=== PATIENT | female | born 1950 | race African-American/Black ===

== ENCOUNTER 2017-01-15 08:31 | Day surgery (SDC) | payer MEDICARE, BC ==
[~2017-01-15] VITALS: Ht 165.1 cm; Wt 94.3 kg
[~2017-01-15 08:31] MED LIST: ALPRAZOLAM0.5 MG PO; AMOXICILLIN250 M1 PO; ATENOLOL25 MG PO; BENTYL10 MG PO; CARDURA2 MG PO; CARTIA XT240 MG/24 OR; CEFTIN500 MG PO; CIPRO XR500 MG PO; CIPROFLOXACN500 MG PO; CLONIDINE0.2 MG PO; CYCLOBENZAPR10 MG PO; DICYCLOMINE10 MG PO; DILTIAZEM240 MG PO; DORZOL/TIMOL1 ML OU; DORZOLAMIDE HCL/1 ML OU; ENALAPRIL MALEA20 MG PO; ENALAPRIL10 MG OR; FLAGYL ER750 MG PO; HYDRALAZINE25 MG OR; HYDRALAZINE25 MG PO; HYDRALAZINE50 MG PO; HYDROCO/APAP1 T12 PO; HYDROCODONE/ACE1 TAB PO; LIDODERM5 % EX; LIPITOR10 MG PO; LOPRESSOR 550 MG/TAB PO; LOTRISONE TOP; LUMIGAN0.01 % OP; MAXZIDE OR; MAXZIDE-2537.5 MG/TA PO; MECLIZINE25 MG OR; MEDDOSEPAK PO; MEDROL4 M1 PO; METOCLOPRAMIDE10 MG PO; METOPROL TAR100 MG PO; METOPROLOL TART50 MG PO; METOPROLOL50 MG OR; MOBIC7.5 MG PO; NEXIUM40 M1 PO; NEXIUM40 MG PO; NORVASC10 M1 PO; OMEPRAZOLE20 MG PO; PERCOCET 5/325M1 TAB OR; PREMARIN VAG0.625 MG VA; PRILOSEC20 MG/CAP PO; PROTONIX40 MG PO; RESTASIS0.05 % OU; SIMVASTATIN80 MG PO; SKELAXIN800 MG OR; TAM75CAP PO; TRIAM/HCTZ1 CAP PO; TRIAMT/HCTZ1 TAB PO; ULTRAM50 MG PO; XALATAN 0.005%2.5 ML; ZIOPTAN 0.0015% OU; ZOFRAN4 MG/TAB PO; ZYRTEC10 MG PO; catapres PO
[2017-01-15 10:55] VITALS: BP 193/78
== END 2017-01-15 11:20 | disposition home or self-care (01) ==
LOC: ENDO 08:31 → ORM 10:30 → ENDO 11:20 → ORM 11:30 → ENDO 11:30
PROVIDERS: ATTEND Internal Medicine Gastroenterology
PROC: 0DBP8ZX Excision of Rectum, Via Natural or Artificial Opening Endoscopic, Diagnostic (ICD-10-PCS; principal; 2017-01-15)
PROC: 0DBN8ZX Excision of Sigmoid Colon, Via Natural or Artificial Opening Endoscopic, Diagnostic (ICD-10-PCS; 2017-01-15)
DX: K57.30 Diverticulosis of large intestine without perforation or abscess without bleeding (principal); R14.0 Abdominal distension (gaseous); K63.5 Polyp of colon; K62.1 Rectal polyp; K64.4 Residual hemorrhoidal skin tags; K64.8 Other hemorrhoids; R11.0 Nausea; K21.9 Gastro-esophageal reflux disease without esophagitis; I10 Essential (primary) hypertension; E78.00 Pure hypercholesterolemia, unspecified; Z86.010 Personal history of colon polyps

== ENCOUNTER 2017-02-03 13:47 | Observation (INO) | payer MEDICARE, BC ==
[~2017-02-03] VITALS: Ht 165.1 cm; Wt 95.2 kg
[2017-02-03 14:47] LABS: HEMOGLOBIN 14.1 g/dl (12.0-16.0); IMMATURE GRANULOCYTES 0.3 % (0.0-1.0); MEAN CELL VOLUME 86.2 fL CALC (80.0-100.0); MEAN CORPUSCULAR HGB CONC 33.6 g/L CALC (32.0-36.0); NEUT# 3.79 thou/uL (2.00-7.15); RED BLOOD COUNT 4.87 mill/uL (4.20-5.60); RED CELL DISTRI WIDTH 14.2 % (11.5-15.5)
[2017-02-03 14:57] LABS: ALBUMIN 4.6 g/dL (3.2-5.0); ALKALINE PHOSPHATASE 72 u/l (38-126); ANION GAP 17 (6-22 (CALC)); BILIRUBIN, TOTAL 0.8 mg/dL (0.0-1.4); BUN 12 mg/dL (8-23); BUN/CREATININE RATIO 15 (12-20 (CALC)); CALCIUM 9.7 mg/dL (8.4-10.2); CARBON DIOXIDE 27 mmol/l (22-30); CHLORIDE 104 mmol/l (95-108); CREATININE 0.8 mg/dL (0.5-1.0); GFR > 60 ML/MIN (>=60 (CALC)); GFR FOR AFR.AMER. > 60 ML/MIN (>=60 (CALC)); GLUCOSE 140 mg/dL (82-115); POTASSIUM 3.9 mmol/l (3.5-5.1); SGOT/AST 27 u/l (9-36); SGPT/ALT 24 u/l (11-66); SODIUM 144 mmol/l (137-146); TOTAL PROTEIN 8.5 g/dL (6.3-8.2)
[2017-02-03 15:10] LABS: MYOGLOBIN 31 ng/mL (0 - 62)
[2017-02-03 17:56] VITALS: BP 161/87
[2017-02-03 20:25] VITALS: BP 135/70
[2017-02-04 00:15] VITALS: BP 143/63
[2017-02-04 04:00] VITALS: BP 146/62
[2017-02-04 05:51] LABS: HEMATOCRIT 38.7 % (37.0-47.0); HEMOGLOBIN 12.8 g/dl (12.0-16.0); IMMATURE GRANULOCYTES 0.2 % (0.0-1.0); MEAN CELL VOLUME 86.6 fL CALC (80.0-100.0); MEAN CORPUSCULAR HGB 28.6 pG CALC (26.0-32.0); MEAN CORPUSCULAR HGB CONC 33.1 g/L CALC (32.0-36.0); RED BLOOD COUNT 4.47 mill/uL (4.20-5.60); RED CELL DISTRI WIDTH 14.2 % (11.5-15.5)
[2017-02-04 06:14] LABS: ALBUMIN 3.9 g/dL (3.2-5.0); ALKALINE PHOSPHATASE 78 u/l (38-126); ANION GAP 14 (6-22 (CALC)); BILIRUBIN, TOTAL 0.8 mg/dL (0.0-1.4); BUN 12 mg/dL (8-23); BUN/CREATININE RATIO 13 (12-20 (CALC)); CALCIUM 9.4 mg/dL (8.4-10.2); CALCULATED LDLCHOLESTEROL 119 mg/dL (62-129 (CALC)); CARBON DIOXIDE 30 mmol/l (22-30); CHLORIDE 103 mmol/l (95-108); CREATININE 0.9 mg/dL (0.5-1.0); GFR > 60 ML/MIN (>=60 (CALC)); GFR FOR AFR.AMER. > 60 ML/MIN (>=60 (CALC)); GLUCOSE 112 mg/dL (82-115); HDL CHOLESTEROL 56 mg/dL (>=40); SGOT/AST 16 u/l (9-36); SGPT/ALT 24 u/l (11-66); SODIUM 142 mmol/l (137-146); TOTAL CHOLESTEROL 196 mg/dl (0-199); TOTAL TRIGLYCERIDES 105 mg/dl (30-149); VLDL CHOLESTROL 21 mg/dl (1-41 (CALC))
[2017-02-04 07:27] VITALS: BP 160/66
== END 2017-02-04 09:29 | disposition home or self-care (01) ==
LOC: ENPENDDIS → ED 13:47 → ED-I 15:38 → ED 16:27 → MS2 16:28
PROVIDERS: Emergency Medicine; ADMIT Internal Medicine Geriatric Medicine; ATTEND Internal Medicine Geriatric Medicine
DX: R07.9 Chest pain, unspecified (principal); I10 Essential (primary) hypertension; K21.9 Gastro-esophageal reflux disease without esophagitis; K27.9 Peptic ulcer, site unspecified, unspecified as acute or chronic, without hemorrhage or perforation; I25.10 Atherosclerotic heart disease of native coronary artery without angina pectoris

== ENCOUNTER 2017-03-19 07:14 | Day surgery (SDC) | payer MEDICARE, BC ==
[~2017-03-19] VITALS: Ht 167.6 cm; Wt 208.0 kg
[~2017-03-19 07:14] MED LIST changes: +AMITIZA8 MCG PO; +DEXILANT30 MG PO; +HYDROCO/APAP1 TA9 PO
[2017-03-19 08:47] VITALS: BP 123/56
== END 2017-03-19 09:05 | disposition home or self-care (01) ==
LOC: ENDO 07:14 → ORM 09:15 → ENDO 09:15
PROVIDERS: ATTEND Internal Medicine Gastroenterology
PROC: 0DB48ZX Excision of Esophagogastric Junction, Via Natural or Artificial Opening Endoscopic, Diagnostic (ICD-10-PCS; principal; 2017-03-19)
PROC: 0DB68ZX Excision of Stomach, Via Natural or Artificial Opening Endoscopic, Diagnostic (ICD-10-PCS; 2017-03-19)
DX: K21.0 Gastro-esophageal reflux disease with esophagitis (principal); R14.0 Abdominal distension (gaseous); R11.0 Nausea; K29.50 Unspecified chronic gastritis without bleeding; K44.9 Diaphragmatic hernia without obstruction or gangrene; K57.30 Diverticulosis of large intestine without perforation or abscess without bleeding; K64.8 Other hemorrhoids; K76.0 Fatty (change of) liver, not elsewhere classified; I10 Essential (primary) hypertension; E78.00 Pure hypercholesterolemia, unspecified; Z86.010 Personal history of colon polyps

== ENCOUNTER 2018-02-05 13:31 | Observation (INO) | payer MEDICARE, BC ==
[~2018-02-05] VITALS: Ht 167.6 cm; Wt 94.0 kg
[2018-02-05 13:50] LABS: HEMATOCRIT 41.3 % (37.0-47.0); IMMATURE GRANULOCYTES 0.3 % (0.0-1.0); MEAN CELL VOLUME 87.1 fL CALC (80.0-100.0); MEAN CORPUSCULAR HGB 29.5 pG CALC (26.0-32.0); MEAN CORPUSCULAR HGB CONC 33.9 g/L CALC (32.0-36.0); NEUT# 4.38 thou/uL (2.00-7.15); RED BLOOD COUNT 4.74 mill/uL (4.20-5.60); RED CELL DISTRI WIDTH 13.4 % (11.5-15.5)
[2018-02-05] MEDS ORDERED: PRILOSEC20 MG PO (13:59)
[2018-02-05] MEDS ORDERED: RANITIDINE150 MG PO (14:00)
[2018-02-05 14:10] LABS: ANION GAP 20 (6-22 (CALC)); BUN 11 mg/dL (8-23); BUN/CREATININE RATIO 13 (12-20 (CALC)); CARBON DIOXIDE 25 mmol/l (22-30); CHLORIDE 102 mmol/l (95-108); CREATININE 0.9 mg/dL (0.5-1.0); GFR > 60 ML/MIN (>=60 (CALC)); GFR FOR AFR.AMER. > 60 ML/MIN (>=60 (CALC)); POTASSIUM 3.9 mmol/l (3.5-5.1); SODIUM 143 mmol/l (137-146)
[2018-02-05 16:17] VITALS: BP 170/76
[2018-02-05 17:22] VITALS: BP 152/60
[2018-02-05 20:15] VITALS: BP 164/62
[2018-02-05 23:47] VITALS: BP 145/62
[2018-02-06 04:55] VITALS: BP 156/70
[2018-02-06 06:12] LABS: HEMATOCRIT 40.9 % (37.0-47.0); HEMOGLOBIN 13.8 g/dl (12.0-16.0); MEAN CELL VOLUME 87.8 fL CALC (80.0-100.0); MEAN CORPUSCULAR HGB 29.6 pG CALC (26.0-32.0); MEAN CORPUSCULAR HGB CONC 33.7 g/L CALC (32.0-36.0); RED BLOOD COUNT 4.66 mill/uL (4.20-5.60); RED CELL DISTRI WIDTH 13.5 % (11.5-15.5)
[2018-02-06 06:29] LABS: ALKALINE PHOSPHATASE 86 u/l (38-126); ANION GAP 17 (6-22 (CALC)); BILIRUBIN, TOTAL 0.7 mg/dL (0.0-1.4); BUN 9 mg/dL (8-23); BUN/CREATININE RATIO 11 (12-20 (CALC)); CALCULATED LDLCHOLESTEROL 115 mg/dL (62-129 (CALC)); CARBON DIOXIDE 27 mmol/l (22-30); CHLORIDE 105 mmol/l (95-108); CHOLESTEROL HDL RATIO 3.3 (<4.4 (CALC)); CREATININE 0.8 mg/dL (0.5-1.0); GFR > 60 ML/MIN (>=60 (CALC)); GFR FOR AFR.AMER. > 60 ML/MIN (>=60 (CALC)); HDL CHOLESTEROL 59 mg/dL (>=40); MAGNESIUM 1.6 mg/dL (1.6-2.3); POTASSIUM 3.9 mmol/l (3.5-5.1); SGOT/AST 16 u/l (9-36); SGPT/ALT 25 u/l (11-66); SODIUM 145 mmol/l (137-146); TOTAL CHOLESTEROL 193 mg/dl (0-199); TOTAL PROTEIN 7.3 g/dL (6.3-8.2); TRIGLYCERIDES REFLEX TO dLDL 95 mg/dl (30-149); VLDL CHOLESTROL 19 mg/dl (1-41 (CALC))
[2018-02-06 06:59] LABS: TSH, 3RD GENERATION 3.06 uIU/mL (0.47 - 4.68)
[2018-02-06 07:22] VITALS: BP 137/64
[2018-02-06] MEDS ORDERED: CARAFATE1 GM PO (10:47)
[2018-02-06 11:24] VITALS: BP 164/65
== END 2018-02-06 12:08 | disposition home or self-care (01) ==
LOC: ED 13:31 → ED-I 15:05 → ED 15:18 → MS2 15:19
PROVIDERS: Family Medicine; ADMIT Internal Medicine; ATTEND Internal Medicine
DX: R10.13 Epigastric pain (principal); I10 Essential (primary) hypertension; K21.9 Gastro-esophageal reflux disease without esophagitis; K27.9 Peptic ulcer, site unspecified, unspecified as acute or chronic, without hemorrhage or perforation; K44.9 Diaphragmatic hernia without obstruction or gangrene; R07.9 Chest pain, unspecified

== ENCOUNTER 2018-04-08 10:52 | Day surgery (SDC) | payer MEDICARE, BC ==
[~2018-04-08 10:52] MED LIST changes: +CARAFATE1 GM PO; +PRILOSEC20 MG PO; +RANITIDINE150 MG PO
[2018-04-08 16:33] VITALS: BP 165/71
== END 2018-04-08 15:15 | disposition home or self-care (01) ==
LOC: ENDO 10:52 → ORM 15:30 → ENDO 15:30 → ORM 18:00
PROVIDERS: ATTEND Internal Medicine Gastroenterology
PROC: 0DB48ZX Excision of Esophagogastric Junction, Via Natural or Artificial Opening Endoscopic, Diagnostic (ICD-10-PCS; principal; 2018-04-08)
PROC: 0D758ZZ Dilation of Esophagus, Via Natural or Artificial Opening Endoscopic (ICD-10-PCS; 2018-04-08)
DX: K21.0 Gastro-esophageal reflux disease with esophagitis (principal); K29.50 Unspecified chronic gastritis without bleeding; K22.2 Esophageal obstruction; B96.81 Helicobacter pylori [H. pylori] as the cause of diseases classified elsewhere; K44.9 Diaphragmatic hernia without obstruction or gangrene; K76.0 Fatty (change of) liver, not elsewhere classified; K57.30 Diverticulosis of large intestine without perforation or abscess without bleeding; R14.0 Abdominal distension (gaseous); K59.00 Constipation, unspecified; K64.8 Other hemorrhoids; I10 Essential (primary) hypertension; E78.00 Pure hypercholesterolemia, unspecified; Z86.010 Personal history of colon polyps

== ENCOUNTER → 2018-12-07 | Outpatient (REF) | payer MEDICARE, BC ==
[~2018-12-07] MED LIST changes: +TIMOLOL OU
[2018-12-07 12:01] LABS: HEMATOCRIT 42.2 % (37.0-47.0); HEMOGLOBIN 13.9 g/dl (12.0-16.0); IMMATURE GRANULOCYTES 0.2 % (0.0-5.0); MEAN CELL VOLUME 86.7 fL CALC (80.0-100.0); MEAN CORPUSCULAR HGB 28.5 pG CALC (26.0-32.0); MEAN CORPUSCULAR HGB CONC 32.9 g/L CALC (32.0-36.0); NEUT# 3.29 thou/uL (2.00-7.15); RED BLOOD COUNT 4.87 mill/uL (4.20-5.60)
[2018-12-07 12:18] LABS: ALBUMIN 4.6 g/dL (3.2-5.0); ALKALINE PHOSPHATASE 91 u/l (38-126); ANION GAP 14 (6-22 (CALC)); BILIRUBIN, TOTAL 0.9 mg/dL (0.0-1.4); BUN 13 mg/dL (8-23); BUN/CREATININE RATIO 16 (12-20 (CALC)); CALCULATED LDLCHOLESTEROL 138 mg/dL (62-129 (CALC)); CARBON DIOXIDE 26 mmol/l (22-30); CHLORIDE 107 mmol/l (95-108); CHOLESTEROL HDL RATIO 3.4 (<4.4 (CALC)); CREATININE 0.8 mg/dL (0.5-1.0); GFR > 60 ML/MIN (>=60 (CALC)); GFR FOR AFR.AMER. > 60 ML/MIN (>=60 (CALC)); HDL CHOLESTEROL 63 mg/dL (>=40); POTASSIUM 4.3 mmol/l (3.5-5.1); SGOT/AST 23 u/l (9-36); SODIUM 144 mmol/l (137-146); TOTAL CHOLESTEROL 216 mg/dl (0-199); TOTAL PROTEIN 7.9 g/dL (6.3-8.2); TOTAL TRIGLYCERIDES 76 mg/dl (30-149); VLDL CHOLESTROL 15 mg/dl (1-41 (CALC))
[2018-12-07 13:11] LABS: URINE BILIRUBIN - DIPSTICK NEGATIVE (NEGATIVE); URINE BLOOD DIPSTICK TRACE-LYSED (NEGATIVE); URINE COLOR YELLOW; URINE GLUCOSE - DIPSTICK NEGATIVE (NEGATIVE); URINE KETONE NEGATIVE (NEGATIVE); URINE LEUK ESTERASE SMALL (NEGATIVE); URINE NITRITE - DIPSTICK NEGATIVE (Negative); URINE PH 5.5 (4.5-8.0); URINE PROTEIN - DIPSTICK NEGATIVE (NEG-TRACE); URINE SPECIFIC GRAVITY 1.015; URINE UROBILINOGEN - DIPSTICK 0.2 E.U./dL (0.2)
[2018-12-07 13:30] LABS: URINE BACTERIA FEW hpf; URINE RBC 0-2 RBC/hpf (0-5); URINE SQUAMOUS EPITHELIAL CELL FEW EPI/hpf (0-FEW); URINE WBC 0-2 WBC/hpf (0-5)
== END | disposition home or self-care (01) ==
LOC: LAB 11:18
PROVIDERS: ATTEND Nurse Practitioner Family
DX: M54.5 Low back pain (principal); E78.2 Mixed hyperlipidemia; I10 Essential (primary) hypertension; N39.0 Urinary tract infection, site not specified

== ENCOUNTER 2019-01-02 12:04 | Observation (INO) | payer MEDICARE, BC ==
[~2019-01-02] VITALS: Ht 167.6 cm; Wt 94.5 kg
[~2019-01-02 12:04] MED LIST changes: -TIMOLOL OU
--- NOTE | 2019-01-02 12:04 | NUR ---
PT TO ROOM VIA WC ABLE TO STAND AND TRANSFER SELF WITHOUT ASSIST.
--- NOTE | 2019-01-02 12:17 | NUR ---
PT TO ROOM VIA WC ABLE TO STAND AND TRANSFER SELF TO STRETCHER.
--- NOTE | 2019-01-02 12:22 | NUR ---
PT PROVIDED ASA AND NTG ORDERED, IV PLACEMENT IN PROGRESS.
[2019-01-02 12:56] LABS: HEMATOCRIT 45.1 % (37.0-47.0); HEMOGLOBIN 14.7 g/dl (12.0-16.0); IMMATURE GRANULOCYTES 0.4 % (0.0-5.0); MEAN CELL VOLUME 87.7 fL CALC (80.0-100.0); MEAN CORPUSCULAR HGB 28.6 pG CALC (26.0-32.0); MEAN CORPUSCULAR HGB CONC 32.6 g/L CALC (32.0-36.0); NEUT# 7.79 thou/uL (2.00-7.15); RED BLOOD COUNT 5.14 mill/uL (4.20-5.60); RED CELL DISTRI WIDTH 15.5 % (11.5-15.5)
--- NOTE | 2019-01-02 13:17 | NUR ---
PT PAINFREE AFTER NTG AND ASA. 201/81.
[2019-01-02 13:27] LABS: ANION GAP 14 (6-22 (CALC)); BUN 16 mg/dL (8-23); BUN/CREATININE RATIO 22 (12-20 (CALC)); CARBON DIOXIDE 27 mmol/l (22-30); CHLORIDE 104 mmol/l (95-108); CREATININE 0.7 mg/dL (0.5-1.0); GFR > 60 ML/MIN (>=60 (CALC)); GFR FOR AFR.AMER. > 60 ML/MIN (>=60 (CALC)); POTASSIUM 3.6 mmol/l (3.5-5.1); SODIUM 141 mmol/l (137-146)
[2019-01-02] MEDS ORDERED: TIMOLOL OU (14:13)
[2019-01-02] MEDS ORDERED: MEDDOSEPAK PO (14:15)
[2019-01-02] MEDS ORDERED: RESTASIS0.05 % OU (14:16)
--- NOTE | 2019-01-02 15:51 | NUR ---
PT FREE OF CHEST PAIN, STATES THAT SHE HAS A HEADACHE. PT AWARE OF PENDING ADMISSION, TO CALL REPORT SOON.
--- NOTE | 2019-01-02 16:00 | NUR ---
PT ARRIVED TO MED/SURG ROOM 282 VIA STRETCHER IN STABLE CONDITION ACCOMPANIED BY TOOTIERN;PT AMBULATED TO STANDING SCALE AND BEDSIDE WITH A STEADY GAIT;VS AND WT OBTAINED AT THIS TIME;PT A&O X3, REPORTS CHEST DISCOMFORT SINCE 0500;PT DENIES ANY CURRENT PAIN OR DISCOMFORTS,PAIN SCALE AND REPORTING EDUCATED;ASSESSMENT COMPLETED;RESPIRATIONS EVEN AND UNLABORED ON RA,CLEAR LUNG SOUNDS;ABDOMEN DISTENDED/SOFT ON PALPATION AND ACTIVE IN ALL 4 QUADRANTS,LAST BM 01/02/18;STRONG PEDAL PULSES;SKIN INTACT;#20G TO LAC FLUSHED AND PATENT, D5 1/2 NS STARTED AT 75ML/HR PER ORDER;TELE MONITORING IN PLACE;PT DENIES ANY ADDITIONAL NEEDS AT THIS TIME AND IS ENCOURAGED TO CALL FOR ASSISTANCE IF NEEDED;CALL LIGHT IN REACH;WILL CONTINUE TO MONITOR
--- NOTE | 2019-01-02 16:00 | NUR ---
PT TAKEN TO ROOM 282 WITHOUT INCIDENT, REPORT WAS TO CASTRO.
[2019-01-02 16:06] VITALS: BP 154/69
--- NOTE | 2019-01-02 17:25 | NUR ---
AT BEDSIDE DISCUSSING POC WITH PT AND DAUGHTER.
--- NOTE | 2019-01-02 17:45 | NUR ---
PT MEDICATED WITH TYLENOL 650MG PO AT THIS TIME FOR HEADACHE PAIN RATING 10/10 ON THE PAIN SCALE,WILL MONITOR FOR EFFECTIVENESS.
[2019-01-02 19:30] VITALS: BP 169/85
--- NOTE | 2019-01-03 00:15 | NUR ---
PATIENT MEDICATED WITH [id number] ORDERED. NO COMPLAINTS AT THIS TIME. TELE MONITOR IN PLACE. CALL LIGHT IN REACH. WILL CONT TO MONITOR.
[2019-01-03 00:18] VITALS: BP 172/66
[2019-01-03 03:40] VITALS: BP 145/59
--- NOTE | 2019-01-03 04:00 | NUR ---
PATIENT APPEARS SLEEPING POSITONED ON HER LEFT SIDE. RESP ARE EVEN AND UNLABORED. IVF PATENT AND INFUSING AT 75CC/HR. TELE MONITOR IN PLACE. CALL LIGHT IN REACH. WILL CONT TO MONITOR.
[2019-01-03 05:37] LABS: HEMATOCRIT 42.7 % (37.0-47.0); HEMOGLOBIN 14.1 g/dl (12.0-16.0); IMMATURE GRANULOCYTES 0.3 % (0.0-5.0); MEAN CELL VOLUME 86.1 fL CALC (80.0-100.0); MEAN CORPUSCULAR HGB 28.4 pG CALC (26.0-32.0); NEUT# 4.97 thou/uL (2.00-7.15); RED BLOOD COUNT 4.96 mill/uL (4.20-5.60); RED CELL DISTRI WIDTH 13.9 % (11.5-15.5)
[2019-01-03 05:57] LABS: ALBUMIN 4.2 g/dL (3.2-5.0); ALKALINE PHOSPHATASE 83 u/l (38-126); ANION GAP 15 (6-22 (CALC)); BILIRUBIN, TOTAL 0.8 mg/dL (0.0-1.4); BUN 18 mg/dL (8-23); BUN/CREATININE RATIO 27 (12-20 (CALC)); CALCULATED LDLCHOLESTEROL 123 mg/dL (62-129 (CALC)); CARBON DIOXIDE 26 mmol/l (22-30); CHLORIDE 103 mmol/l (95-108); CHOLESTEROL HDL RATIO 3.6 (<4.4 (CALC)); CREATININE 0.7 mg/dL (0.5-1.0); GFR > 60 ML/MIN (>=60 (CALC)); GFR FOR AFR.AMER. > 60 ML/MIN (>=60 (CALC)); HDL CHOLESTEROL 60 mg/dL (>=40); POTASSIUM 4.1 mmol/l (3.5-5.1); SGOT/AST 17 u/l (9-36); SODIUM 140 mmol/l (137-146); TOTAL CHOLESTEROL 212 mg/dl (0-199); TOTAL PROTEIN 7.3 g/dL (6.3-8.2); TOTAL TRIGLYCERIDES 150 mg/dl (30-149); VLDL CHOLESTROL 30 mg/dl (0-48 (CALC))
--- NOTE | 2019-01-03 07:10 | NUR ---
REPORT RECEIVED FROM SATNAM CHUN;PT APPEARS TO BE RESTING IN SUPINE POSITION;INTRODUCED SELF TO PT AND POC DISCUSSED;RESPIRATIONS EVEN AND UNLABORED ON RA;PT DENIES ANY CURRENT PAIN OR DISCOMFORTS;TELE MONITORING IN PLACE;IV SITE TO RAC REMAINS PATENT INFUSING @ 75ML/HR;PT DENIES ANY CURRENT NEEDS AND IS ENCOURAGED TO CALL FOR ASSISTANCE IF NEEDED;CALL LIGHT IN REACH;WILL CONTINUE TO MONITOR
--- NOTE | 2019-01-03 08:16 | NUR ---
AT BEDSIDE DISCUSSING POC.
--- NOTE | 2019-01-03 09:20 | NUR ---
PT RESTING IN SEMI FOWLERS POSITION,A&O X3;VS OBTAINED AND ASSESSMENT COMPLETED;PT DENIES ANY CURRENT CHEST PAIN OR PRESSURE,PAIN SCALE AND REPORTING EDUCATED;RESPIRATIONS EVEN AND UNLABORED ON RA,CLEAR LUNG SOUNDS;ABDOMEN SOFT ON PALPATION AND ACTIVE IN ALL 4 QUADRANTS;SKIN INTACT;TELE MONITORING IN PLACE;#20G TO RAC FLUSHED AND PATENT,SITE APPEARS HEALTHY;CURRENT BP 177/72 HR 63, ALL MORNING MEDICATION ADMINISTERED AT THIS TIME WILL MONITOR FOR EFFECTIVENESS;PT ENCOURAGED TO CALL FOR ASSISTANCE IF NEEDED;CALL LIGHT IN REACH;WILL CONTINUE TO MONITOR
[2019-01-03 09:23] VITALS: BP 177/72
--- NOTE | 2019-01-03 11:55 | NUR ---
PT RESTING IN SEMI FOWLERS POSITION WITH FAMILY AT BEDSIDE;RESPIRATIONS EVEN AND UNLABORED ON RA;PT DENIES ANY CURRENT PAIN OR NEEDS;IV SITE TO RAC REMAINS PATENT;AWAITING FINAL TROP RESULTS FOR PENDING DISCHARGE;ENCOURAGED TO CALL FOR ASSISTANCE IF NEEDED;CALL LIGHT IN REACH;WILL CONTINUE TO MONITOR
[2019-01-03 12:20] VITALS: BP 172/64
--- NOTE | 2019-01-03 12:24 | NUR ---
LAB AT BEDSIDE
--- NOTE | 2019-01-03 13:19 | NUR ---
NOTIFIED OF TROP <0.012. AWAITING DISCHARGE ORDER. PT NOTIFIED AND VERBALIZES UNDERSTANDING.
--- NOTE | 2019-01-03 13:55 | NUR ---
ALL DISCHARGE INSTRUCTIONS PROVIDED AT THIS TIME,QUESTIONS ANSWERED;IV SITE REMOVED WITH CATHETER INTACT;PT DENIES ANY ADDITIONAL NEEDS;WHEELCHAIR TO BE PROVIDED FOR DISCHARGE HOME.
[2019-01-03 13:58] VITALS: BP 156/76
--- NOTE | 2019-01-03 14:06 | NUR ---
Discharge instructions given. Patient verbalizes understanding of same. Discharged in stable condition via Wheelchair to Home with *Other. All belongings sent with pt.
== END 2019-01-03 14:05 | disposition home or self-care (01) ==
LOC: ED 12:04 → ED-I 13:48 → ED 14:28 → MS2 14:29 → ICU 14:29 → MS2 15:11
PROVIDERS: Family Medicine; ADMIT Internal Medicine Geriatric Medicine; ATTEND Internal Medicine Geriatric Medicine
DX: R07.9 Chest pain, unspecified (principal); I10 Essential (primary) hypertension; I25.10 Atherosclerotic heart disease of native coronary artery without angina pectoris; D69.6 Thrombocytopenia, unspecified; M19.90 Unspecified osteoarthritis, unspecified site; F41.1 Generalized anxiety disorder; K21.9 Gastro-esophageal reflux disease without esophagitis; K27.9 Peptic ulcer, site unspecified, unspecified as acute or chronic, without hemorrhage or perforation; E78.5 Hyperlipidemia, unspecified
CPT/HCPCS: G0378

== ENCOUNTER 2019-01-07 17:45 | Emergency (ER) | payer MEDICARE, BC ==
[~2019-01-07] VITALS: Ht 167.6 cm; Wt 95.0 kg
[~2019-01-07 17:45] MED LIST changes: +TIMOLOL OU
[2019-01-07 20:27] VITALS: BP 164/71
== END 2019-01-07 20:33 | disposition home or self-care (01) ==
LOC: ED 17:45
DX: I10 Essential (primary) hypertension (principal)

== ENCOUNTER 2019-04-28 07:46 | Inpatient (IN) | payer MEDICARE, BC ==
[~2019-04-28] VITALS: Ht 165.1 cm; Wt 90.0 kg
[2019-04-28] VITALS (9 sets, daily range): BP systolic 184–219; BP diastolic 74–89
[2019-04-28 08:38] LABS: HEMATOCRIT 43.9 % (37.0-47.0); HEMOGLOBIN 14.5 g/dl (12.0-16.0); IMMATURE GRANULOCYTES 0.3 % (0.0-5.0); MEAN CELL VOLUME 86.9 fL CALC (80.0-100.0); MEAN CORPUSCULAR HGB 28.7 pG CALC (26.0-32.0); NEUT# 8.73 thou/uL (2.00-7.15); RED BLOOD COUNT 5.05 mill/uL (4.20-5.60); RED CELL DISTRI WIDTH 14.4 % (11.5-15.5)
[2019-04-28 09:54] LABS: ALBUMIN 4.3 g/dL (3.2-5.0); ALKALINE PHOSPHATASE 87 u/l (38-126); ANION GAP 13 (6-22 (CALC)); BILIRUBIN, TOTAL 0.6 mg/dL (0.0-1.4); BUN 13 mg/dL (8-23); BUN/CREATININE RATIO 16 (12-20 (CALC)); CARBON DIOXIDE 25 mmol/l (22-30); CHLORIDE 107 mmol/l (95-108); CREATININE 0.8 mg/dL (0.5-1.0); GFR > 60 ML/MIN (>=60 (CALC)); GFR FOR AFR.AMER. > 60 ML/MIN (>=60 (CALC)); LIPASE 79 u/l (23-300); POTASSIUM 3.9 mmol/l (3.5-5.1); SGOT/AST 20 u/l (9-36); SODIUM 142 mmol/l (137-146); TOTAL PROTEIN 7.3 g/dL (6.3-8.2)
[2019-04-28] MEDS ORDERED: LISINOPRIL20 MG PO (09:56)
[2019-04-28] MEDS ORDERED: HYDRALAZINE25 MG PO (09:56)
[2019-04-28] MEDS ORDERED: HYDROCHLOROT12.5 MG PO (09:57)
[2019-04-28 10:32] LABS: URINE BILIRUBIN - DIPSTICK NEGATIVE (NEGATIVE); URINE BLOOD DIPSTICK NEGATIVE (NEGATIVE); URINE COLOR YELLOW; URINE GLUCOSE - DIPSTICK NEGATIVE (NEGATIVE); URINE KETONE NEGATIVE (NEGATIVE); URINE LEUK ESTERASE NEGATIVE (NEGATIVE); URINE NITRITE - DIPSTICK NEGATIVE (Negative); URINE PH 6.5 (4.5-8.0); URINE PROTEIN - DIPSTICK NEGATIVE (NEG-TRACE); URINE UROBILINOGEN - DIPSTICK 0.2 E.U./dL (0.2)
[2019-04-29] VITALS (19 sets, daily range): BP systolic 137–202; BP diastolic 57–77
[2019-04-29 05:08] LABS: HEMATOCRIT 41.8 % (37.0-47.0); HEMOGLOBIN 13.9 g/dl (12.0-16.0); IMMATURE GRANULOCYTES 0.4 % (0.0-5.0); MEAN CELL VOLUME 87.8 fL CALC (80.0-100.0); MEAN CORPUSCULAR HGB 29.2 pG CALC (26.0-32.0); MEAN CORPUSCULAR HGB CONC 33.3 g/L CALC (32.0-36.0); NEUT# 9.84 thou/uL (2.00-7.15); RED BLOOD COUNT 4.76 mill/uL (4.20-5.60); RED CELL DISTRI WIDTH 14.6 % (11.5-15.5)
[2019-04-29 05:18] LABS: ALBUMIN 4.2 g/dL (3.2-5.0); ALKALINE PHOSPHATASE 82 u/l (38-126); ANION GAP 16 (6-22 (CALC)); BILIRUBIN, TOTAL 0.7 mg/dL (0.0-1.4); BUN 9 mg/dL (8-23); BUN/CREATININE RATIO 12 (12-20 (CALC)); CARBON DIOXIDE 25 mmol/l (22-30); CHLORIDE 102 mmol/l (95-108); CREATININE 0.8 mg/dL (0.5-1.0); GFR > 60 ML/MIN (>=60 (CALC)); GFR FOR AFR.AMER. > 60 ML/MIN (>=60 (CALC)); SGOT/AST 18 u/l (9-36); SODIUM 139 mmol/l (137-146); TOTAL PROTEIN 7.3 g/dL (6.3-8.2)
[2019-04-29] MEDS ORDERED: XIIDRA5 % OU (11:05)
[2019-04-30] VITALS (17 sets, daily range): BP systolic 101–202; BP diastolic 47–78
[2019-04-30 05:00] LABS: HEMATOCRIT 40.5 % (37.0-47.0); HEMOGLOBIN 13.3 g/dl (12.0-16.0); IMMATURE GRANULOCYTES 0.3 % (0.0-5.0); MEAN CELL VOLUME 87.9 fL CALC (80.0-100.0); MEAN CORPUSCULAR HGB 28.9 pG CALC (26.0-32.0); MEAN CORPUSCULAR HGB CONC 32.8 g/L CALC (32.0-36.0); NEUT# 6.08 thou/uL (2.00-7.15); RED BLOOD COUNT 4.61 mill/uL (4.20-5.60); RED CELL DISTRI WIDTH 14.7 % (11.5-15.5)
[2019-04-30 05:11] LABS: ALBUMIN 3.9 g/dL (3.2-5.0); ALKALINE PHOSPHATASE 77 u/l (38-126); ANION GAP 14 (6-22 (CALC)); BILIRUBIN, TOTAL 0.8 mg/dL (0.0-1.4); BUN 9 mg/dL (8-23); BUN/CREATININE RATIO 9 (12-20 (CALC)); CARBON DIOXIDE 23 mmol/l (22-30); CHLORIDE 106 mmol/l (95-108); GFR 55 ML/MIN (>=60 (CALC)); GFR FOR AFR.AMER. > 60 ML/MIN (>=60 (CALC)); POTASSIUM 4.1 mmol/l (3.5-5.1); SGOT/AST 21 u/l (9-36); SODIUM 140 mmol/l (137-146); TOTAL PROTEIN 6.9 g/dL (6.3-8.2)
[2019-05-01] VITALS (9 sets, daily range): BP systolic 110–194; BP diastolic 44–80
[2019-05-01 06:21] LABS: HEMATOCRIT 36.1 % (37.0-47.0); IMMATURE GRANULOCYTES 0.3 % (0.0-5.0); MEAN CORPUSCULAR HGB 29.3 pG CALC (26.0-32.0); MEAN CORPUSCULAR HGB CONC 33.2 g/L CALC (32.0-36.0); NEUT# 3.59 thou/uL (2.00-7.15); RED BLOOD COUNT 4.1 mill/uL (4.20-5.60); RED CELL DISTRI WIDTH 14.6 % (11.5-15.5)
[2019-05-01 06:27] LABS: ALBUMIN 3.6 g/dL (3.2-5.0); BILIRUBIN, TOTAL 0.9 mg/dL (0.0-1.4); CREATININE 1.5 mg/dL (0.5-1.0); POTASSIUM 3.9 mmol/l (3.5-5.1); TOTAL PROTEIN 6.3 g/dL (6.3-8.2)
[2019-05-02 03:30] VITALS: BP 144/69
[2019-05-02 07:09] VITALS: BP 150/72
[2019-05-02 07:37] VITALS: BP 150/72
[2019-05-02] MEDS ORDERED: LEVAQUIN750 MG PO (08:53)
[2019-05-02] MEDS ORDERED: HYDRALAZINE25 MG PO (08:53)
[2019-05-02] MEDS ORDERED: LISINOPRIL10 MG PO (08:53)
[2019-05-02] MEDS ORDERED: TERAZOSIN5 MG PO (08:53)
== END 2019-05-02 10:23 | disposition home or self-care (01) | DRG 392 ==
LOC: ED 07:46 → ED-I 12:30 → ED 12:45 → ICU 12:46 → MS2 04-29 14:55 → ICU 04-29 14:55 → MS2 04-30 13:24
PROVIDERS: Emergency Medicine; ADMIT Internal Medicine Geriatric Medicine; ATTEND Internal Medicine Geriatric Medicine
DX: K57.92 Diverticulitis of intestine, part unspecified, without perforation or abscess without bleeding (principal); I10 Essential (primary) hypertension; E78.5 Hyperlipidemia, unspecified; I25.10 Atherosclerotic heart disease of native coronary artery without angina pectoris; K27.9 Peptic ulcer, site unspecified, unspecified as acute or chronic, without hemorrhage or perforation; M19.90 Unspecified osteoarthritis, unspecified site; F41.1 Generalized anxiety disorder; E11.9 Type 2 diabetes mellitus without complications; R07.9 Chest pain, unspecified
CPT/HCPCS: Q9967; S0164

== ENCOUNTER 2023-04-05 08:06 | Day surgery (SDC) | payer MEDICARE ==
[~2023-04-05] VITALS: Ht 165.1 cm; Wt 87.5 kg
[~2023-04-05 08:06] MED LIST changes: +COZAAR50 MG PO; +DILTIAZEM120 M1 PO; +DORZOLAMIDE OU; +HYDROCHLOROT12.5 MG PO; +LEVAQUIN750 MG PO; +LISINOPRIL10 MG PO; +LISINOPRIL20 MG PO; +MOTRIN800 MG PO; +SINGULAIR10 MG PO; +TENORETIC 501 TAB PO; +TERAZOSIN5 MG PO; +VITAMIN D1.25 MG PO; +XIIDRA5 % OU
[2023-04-05 11:40] VITALS: BP 176/55
== END 2023-04-05 11:10 | disposition home or self-care (01) ==
LOC: ENDO 08:06 → ORM 08:30 → ENDO 11:10
PROVIDERS: ATTEND Internal Medicine Gastroenterology
PROC: 0DBL8ZX Excision of Transverse Colon, Via Natural or Artificial Opening Endoscopic, Diagnostic (ICD-10-PCS; principal; 2023-04-05)
DX: Z12.11 Encounter for screening for malignant neoplasm of colon (principal); D12.3 Benign neoplasm of transverse colon; K64.8 Other hemorrhoids; K57.30 Diverticulosis of large intestine without perforation or abscess without bleeding; Z86.010 Personal history of colon polyps

== ENCOUNTER 2023-04-21 07:15 | Day surgery (SDC) | payer MEDICARE ==
[~2023-04-21] VITALS: Ht 165.1 cm; Wt 87.5 kg
[2023-04-21 09:44] VITALS: BP 209/78
== END 2023-04-21 09:37 | disposition home or self-care (01) ==
LOC: ORM 07:15
PROVIDERS: ATTEND Physical Medicine & Rehabilitation
DX: G89.4 Chronic pain syndrome (principal); M47.816 Spondylosis without myelopathy or radiculopathy, lumbar region; M54.9 Dorsalgia, unspecified; Z53.9 Procedure and treatment not carried out, unspecified reason

== ENCOUNTER 2023-06-23 06:59 | Day surgery (SDC) | payer MEDICARE ==
[~2023-06-23] VITALS: Ht 165.1 cm; Wt 86.2 kg
[2023-06-23] MEDS ORDERED: D31000 UNIT PO (07:23)
[2023-06-23] MEDS ORDERED: OS-CAL 500500 M1 PO (07:23)
[2023-06-23] MEDS ORDERED: ABILIFY10 MG PO (07:25)
[2023-06-23 09:08] VITALS: BP 155/60
== END 2023-06-23 09:07 | disposition home or self-care (01) ==
LOC: ORM 06:59
PROVIDERS: ATTEND Physical Medicine & Rehabilitation
DX: G89.4 Chronic pain syndrome (principal); M47.816 Spondylosis without myelopathy or radiculopathy, lumbar region; M54.9 Dorsalgia, unspecified; M46.1 Sacroiliitis, not elsewhere classified
CPT/HCPCS: G0260; Q9967

== ENCOUNTER 2023-08-25 07:05 | Day surgery (SDC) | payer MEDICARE ==
[~2023-08-25] VITALS: Ht 165.1 cm; Wt 85.3 kg
[~2023-08-25 07:05] MED LIST changes: +ABILIFY10 MG PO; +D31000 UNIT PO; +OS-CAL 500500 M1 PO
[2023-08-25] MEDS ORDERED: AMLODIPINE BESYL5 MG PO (07:35)
[2023-08-25 11:53] VITALS: BP 177/64
== END 2023-08-25 09:15 | disposition home or self-care (01) ==
LOC: ORM 07:05
PROVIDERS: ATTEND Student in an Organized Health Care Education/Training Program
DX: G89.4 Chronic pain syndrome (principal); M47.816 Spondylosis without myelopathy or radiculopathy, lumbar region; M54.9 Dorsalgia, unspecified; M46.1 Sacroiliitis, not elsewhere classified

== ENCOUNTER 2024-04-03 06:37 | Day surgery (SDC) | payer MEDICARE ==
[~2024-04-03] VITALS: Ht 165.1 cm; Wt 87.1 kg
[~2024-04-03 06:37] MED LIST changes: +AMLODIPINE BESYL5 MG PO; +TRAMADOL HCL50 MG PO
[2024-04-03] MEDS ORDERED: LACTATED RINGER'S 1,000 ML IV ONE (07:03)
[2024-04-03] MEDS ORDERED: FAMOTIDINE 10MG/ML 2ML SDV IV ONE (07:03)
[2024-04-03 08:04] VITALS: BP 182/84
[2024-04-03] MEDS ORDERED: PROPOFOL 500 MG/50 ML VIAL IV ONE (18:07)
[2024-04-03] MEDS ORDERED: GLYCOPYRROLATE 0.2 MG/ML IV ONE (18:07)
[2024-04-03] MEDS ORDERED: LIDOCAINE HCL 2% 2ML SDV IV ONE (18:07)
== END 2024-04-03 08:22 | disposition home or self-care (01) ==
LOC: ORM 06:37
PROVIDERS: ATTEND Internal Medicine Gastroenterology
PROC: 0DB98ZX Excision of Duodenum, Via Natural or Artificial Opening Endoscopic, Diagnostic (ICD-10-PCS; principal; 2024-04-03)
PROC: 0DB78ZX Excision of Stomach, Pylorus, Via Natural or Artificial Opening Endoscopic, Diagnostic (ICD-10-PCS; 2024-04-03)
PROC: 0DB48ZX Excision of Esophagogastric Junction, Via Natural or Artificial Opening Endoscopic, Diagnostic (ICD-10-PCS; 2024-04-03)
DX: K29.50 Unspecified chronic gastritis without bleeding (principal); Z79.899 Other long term (current) drug therapy; Z86.010 Personal history of colon polyps

== ENCOUNTER 2024-04-16 07:54 | Emergency (ER) | payer MEDICARE ==
[~2024-04-16] VITALS: Ht 165.1 cm; Wt 190.0 kg
[2024-04-16] VITALS (8 sets, daily range): BP systolic 178–194; BP diastolic 59–70
[2024-04-16] MEDS ORDERED: SODIUM CHLORIDE 0.9% 1,000 ML IV ONE (08:30)
[2024-04-16] MEDS ORDERED: ONDANSETRON HCl 4 MG/2 ML SDV IV ONE (08:30)
[2024-04-16] MEDS ORDERED: KETOROLAC TROMETHAMINE 30 MG/ML SDV IV ONE (08:30)
[2024-04-16 08:42] LABS: BASO% 0.5 % (0-3); EOS% 1.3 % (0-8); HEMATOCRIT 39.5 % (37.0-47.0); HEMOGLOBIN 13.5 g/dl (12.0-16.0); IMMATURE GRANULOCYTES 0.2 % (0.0-5.0); LYMPH% 24.1 % (15-41); MEAN CELL VOLUME 86.6 fL CALC (80.0-100.0); MEAN CORPUSCULAR HGB 29.6 pG CALC (26.0-32.0); MEAN CORPUSCULAR HGB CONC 34.2 g/dL CAL (32.0-36.0); MONO% 4.1 % (2-13); NEUT# 8.6 thou/uL (2.00-7.15); NEUT% 69.8 % (42-76); RED BLOOD COUNT 4.56 mill/uL (4.20-5.60); RED CELL DISTRI WIDTH 13.2 % (11.5-15.5)
[2024-04-16 09:10] LABS: ALBUMIN 4.4 g/dL (3.2-5.0); BILIRUBIN, TOTAL 0.8 mg/dL (0.02-1.3); CREATININE 0.8 mg/dL (0.5-1.0); POTASSIUM 3.6 mmol/l (3.5-5.1); TOTAL PROTEIN 7.8 g/dL (6.3-8.2)
[2024-04-16 11:27] LABS: URINE BILIRUBIN - DIPSTICK Negative (NEGATIVE); URINE BLOOD DIPSTICK Negative (NEGATIVE); URINE COLOR Yellow; URINE GLUCOSE - DIPSTICK Negative (NEGATIVE); URINE KETONE Negative (NEGATIVE); URINE LEUK ESTERASE Negative (NEGATIVE); URINE NITRITE - DIPSTICK Negative (Negative); URINE PROTEIN - DIPSTICK Negative (NEG-TRACE); URINE SPECIFIC GRAVITY 1.015; URINE UROBILINOGEN - DIPSTICK 0.2 E.U./dL (0.2)
[2024-04-16] MEDS ORDERED: HYOSCYAMINE SULFATE 0.125 MG TAB PO ONE (11:35)
[2024-04-16] MEDS ORDERED: ZOFRAN4 MG/TAB PO (11:38)
[2024-04-16] MEDS ORDERED: LEVSIN0.125 M1 PO (11:38)
== END 2024-04-16 12:05 | disposition home or self-care (01) ==
LOC: ED 07:54
PROVIDERS: Family Medicine
DX: R10.12 Left upper quadrant pain (principal); R10.32 Left lower quadrant pain; R10.13 Epigastric pain; R11.2 Nausea with vomiting, unspecified; I10 Essential (primary) hypertension; K21.9 Gastro-esophageal reflux disease without esophagitis; R73.03 Prediabetes
CPT/HCPCS: Q9967

== ENCOUNTER 2024-12-28 09:22 | Emergency (ER) | payer MEDICARE ==
[~2024-12-28] VITALS: Ht 165.1 cm; Wt 77.0 kg
[2024-12-28] VITALS (15 sets, daily range): BP systolic 167–228; BP diastolic 60–89
[~2024-12-28 09:22] MED LIST changes: +LEVSIN0.125 M1 PO
[2024-12-28] MEDS ORDERED: ASPIRIN 81 MG/TAB PO ONE (09:45)
[2024-12-28] MEDS ORDERED: FAMOTIDINE 10MG/ML 2ML SDV IV ONE (09:45)
[2024-12-28] MEDS ORDERED: ONDANSETRON HCl 4 MG/2 ML SDV IV ONE (10:00)
[2024-12-28] MEDS ORDERED: MORPHINE SULFATE 4 MG/ML VIAL IV ONE (10:00)
[2024-12-28 10:05] LABS: BASO% 0.2 % (0-3); EOS% 1.4 % (0-8); HEMATOCRIT 44.5 % (37.0-47.0); HEMOGLOBIN 14.5 g/dl (12.0-16.0); IMMATURE GRANULOCYTES 0.2 % (0.0-5.0); MEAN CELL VOLUME 88.3 fL CALC (80.0-100.0); MEAN CORPUSCULAR HGB 28.8 pG CALC (26.0-32.0); MEAN CORPUSCULAR HGB CONC 32.6 g/dL CAL (32.0-36.0); NEUT# 13.23 thou/uL (2.00-7.15); NEUT% 72.2 % (42-76); RED BLOOD COUNT 5.04 mill/uL (4.20-5.60); RED CELL DISTRI WIDTH 13.7 % (11.5-15.5)
[2024-12-28 10:25] LABS: D-DIMER 0.89 mg/L (0.19-0.60); INTERNATIONAL NORMALIZED RATIO 0.9 RATIO (0.7-1.3)
[2024-12-28 10:26] LABS: PROTHROMBIN TIME 9.9 SECONDS (9.0-12.5)
[2024-12-28 11:13] LABS: ALBUMIN 4.3 g/dL (3.2-5.0); ALKALINE PHOSPHATASE 91 u/l (38-126); ANION GAP 12 (6-22 (CALC)); BILIRUBIN, TOTAL 0.8 mg/dL (0.02-1.3); BUN 15 mg/dL (8-23); BUN/CREATININE RATIO 19 (12-20 (CALC)); CARBON DIOXIDE 29 mmol/l (22-30); CHLORIDE 104 mmol/l (95-108); CREATININE 0.8 mg/dL (0.5-1.0); ESTIMATED GFR 76 ML/MIN (>=90 (CALC)); LIPASE 71 u/l (23-300); POTASSIUM 4.1 mmol/l (3.5-5.1); SGOT/AST 31 u/l (9-36); SODIUM 142 mmol/l (137-146); TOTAL PROTEIN 7.8 g/dL (6.3-8.2)
[2024-12-28 13:19] LABS: URINE BILIRUBIN - DIPSTICK Negative (NEGATIVE); URINE BLOOD DIPSTICK Negative (NEGATIVE); URINE COLOR Yellow; URINE GLUCOSE - DIPSTICK Negative (NEGATIVE); URINE KETONE Negative (NEGATIVE); URINE LEUK ESTERASE Negative (NEGATIVE); URINE NITRITE - DIPSTICK Negative (Negative); URINE PROTEIN - DIPSTICK Negative (NEG-TRACE); URINE SPECIFIC GRAVITY 1.015; URINE UROBILINOGEN - DIPSTICK 0.2 E.U./dL (0.2)
[2024-12-28] MEDS ORDERED: LOSARTAN Potassium 50 MG/TAB PO ONE (15:10)
[2024-12-28] MEDS ORDERED: ATENOLOL 25 MG TAB PO ONE (15:10)
[2024-12-28] MEDS ORDERED: PEPCID20 MG PO (17:15)
[2024-12-28] MEDS ORDERED: MIRALAX17 GM PO (17:27)
== END 2024-12-28 17:38 | disposition home or self-care (01) ==
LOC: ED 09:22
PROVIDERS: Emergency Medicine
DX: K57.30 Diverticulosis of large intestine without perforation or abscess without bleeding (principal); I10 Essential (primary) hypertension; K21.9 Gastro-esophageal reflux disease without esophagitis; R73.03 Prediabetes; R07.9 Chest pain, unspecified
CPT/HCPCS: A9540; J2405; Q9967

== ENCOUNTER 2025-01-10 14:52 | Emergency (ER) | payer MEDICARE ==
[~2025-01-10] VITALS: Ht 165.1 cm; Wt 85.0 kg
[~2025-01-10 14:52] MED LIST changes: +MIRALAX17 GM PO; +PEPCID20 MG PO
[2025-01-10 15:02] VITALS: BP 188/168
[2025-01-10 15:05] VITALS: BP 171/71
[2025-01-10 15:32] VITALS: BP 161/139
[2025-01-10 15:53] LABS: URINE BILIRUBIN - DIPSTICK Negative (NEGATIVE); URINE BLOOD DIPSTICK Negative (NEGATIVE); URINE GLUCOSE - DIPSTICK Negative (NEGATIVE); URINE KETONE Negative (NEGATIVE); URINE LEUK ESTERASE Negative (NEGATIVE); URINE NITRITE - DIPSTICK Negative (Negative); URINE PROTEIN - DIPSTICK Negative (NEG-TRACE); URINE UROBILINOGEN - DIPSTICK 0.2 E.U./dL (0.2)
[2025-01-10 15:54] LABS: URINE COLOR Yellow
[2025-01-10] MEDS ORDERED: KETOROLAC TROMETHAMINE 30 MG/ML SDV IM ONE (16:00)
[2025-01-10] MEDS ORDERED: METHOCARBAMOL 500 MG/TAB PO ONE (16:00)
[2025-01-10 16:01] VITALS: BP 180/86
[2025-01-10] MEDS ORDERED: EC-NAPROXEN500 MG PO (16:03)
[2025-01-10] MEDS ORDERED: FLEXERIL5 M1 PO (16:03)
[2025-01-10 16:18] VITALS: BP 180/86
== END 2025-01-10 16:27 | disposition home or self-care (01) ==
LOC: ED 14:52
PROVIDERS: Family Medicine
DX: M54.50 Low back pain, unspecified (principal); I10 Essential (primary) hypertension; K21.9 Gastro-esophageal reflux disease without esophagitis